=== PATIENT | female | born 1970 | race Caucasian/White ===

== ENCOUNTER 2024-02-10 14:06 | Emergency (ER) | payer BC, SELFPAY ==
[2024-02-10 14:08] VITALS: BP 136/70
--- NOTE | 2024-02-10 15:14 | ED.MUSCINJ ---
HPI-Injury
General
Chief Complaint: Musculo-Skeletal Complaint
Source: patient
Exam Limitations: none
Time Seen by Provider: 02/10/24 15:05
Travel History
Have you had any contact with someone who has COVID-19?: No
Do you have any symptoms of coronavirus? Fever > 100 degrees, chills, cough, shortness of breath, sore throat, loss of taste or smell, muscle aches, or headache?: No
History of Present Illness-Injury
Initial Injury comments:
53-year-old female presents complaining of right foot pain starting today. She was standing on a ladder supporting the ladder while her was a couple rungs above her cutting a small piece of a tree off. The limb that was cut off fell and
landed on her right foot. Since then she has had pain and swelling to the right foot increased with bearing weight. She also notes an abrasion to the left distal thigh.
Past History
Past History
ED Past Medical History: Asthma, GERD, Psychiatric and Other (IBS, anxiety)
ED Past Surgical History: Cholecystectomy
Social History
Tobacco: Non-smoker
Alcohol: None
Drug: None
Personal:
Living: with family
Employment: Employed
Family History
Family History: Other (GERD)
Phy Exam
Physical Exam
Physical Exam:
General: Well-appearing female no acute respiratory distress
Musculoskeletal exam: Right foot swollen ecchymotic tender over the dorsal midfoot. No significant deformity. Lateral ankle slightly tender as well. She is able to resist eversion and inversion. She is able to dorsiflex the foot. She is tender
over the tarsometatarsal joint.
Skin is intact other than an abrasion to the left thigh
Vascular: Dorsalis pedis pulse right foot with capillary refill to the toes
Neurologic: Good sensation right foot
Injury Course
Orders/Labs/Results
Orders:
Orders
02/10/24 14:09
Foot, Right 3 View [CR Foot - Right Min 3 Views] Urgent
Comment:
Reason For Exam: tree fall on foot
02/10/24 14:10
Ankle, Right 3 view CR [CR Ankle - Right Min 3 Views *] Urgent
Comment:
Reason For Exam: tree limb fell on foot
MDM/Problems Addressed
Differential Diagnosis Includes:
Right foot pain after a tree log falling on it. Consider sprain versus versus dislocation versus Lisfranc injury given the location and mechanism. X-rays were carefully reviewed and are negative for acute bony abnormality. Suspect contusion and
perhaps underlying sprain. Will place in boot and have patient follow-up with orthopedics. Stable for discharge
*Critical Care Note
Total Time (30-74mins, 75-104mins- exclusive of procedures): Not Applicable
ED Attending Note
-
Portions of this chart may have been created with voice recognition software.� Occasional wrong word or��sound alike� substitutions may have occurred due to the inherent limitations of voice recognition software.
Discharge Plan
Departure
Patient Disposition: Home (Routine Discharge)
Date of Disposition: 02/10/24
Time of Disposition: 15:27
Patient with high blood pressure during this ER visit?: No
Discharge Problem:
Foot sprain
Instructions: Muscle and Bone Pain (DC)
Prescriptions:
No Action
fluticasone propionate 1 SPRAY spray,suspension
1 spray intranasal DAILY
polyethylene glycol 3350 17 GRAMS powder in packet
17 grams PO DAILY
cetirizine 10 MG tablet
10 mg PO HSPRN PRN (Reason: allergies)
calcium carbonate [Antacid (calcium carbonate)] 1 TABLET tablet,chewable
500 mg PO Q4HPRN PRN (Reason: heartburn)
simethicone [Gas Relief Extra Strength] 125 MG tablet,chewable
125 mg PO Q4HPRN PRN (Reason: gas)
clonazepam 0.25 MG tablet,disintegrating
0.5 mg PO HSPRN PRN (Reason: anxiety)
albuterol sulfate 1 PUFF HFA aerosol inhaler
1 puff inhalation R Q4HPRN PRN (Reason: asthma)
ut-hms-yyyhj acid-lutein 1 EACH tablet,chewable
1 tab PO DAILY
omeprazole 40 MG capsule,delayed release(DR/EC)
40 mg PO DAILY Qty: 30 0RF
Rx Instructions:
for one month only
venlafaxine [Effexor] 75 MG tablet
75 mg PO DAILY
norethindrone-e.estradiol-iron [Lo Loestrin Fe] 1 EACH tablet
1 ea PO DAILY
diazepam [Valium] 5 MG tablet
2.5 mg PO BID
yolprmulmg-hyhbkjzvorazw-wpgg [Fioricet] 1 EACH capsule
1 ea PO BID
Referrals:
Abhishek Barrios MD [Active] -
Activity Restrictions/Additional Instructions:
Use boot for support. Elevate for swelling. Use ibuprofen and Tylenol for pain. Follow-up with orthopedics for further evaluation
Interventions
Interventions:
ED-Musculoskeletal Assessment Last Done: 02/10/24 15:06
Discharge Date and Time
Print Language: LEBANESE
== END 2024-02-10 16:08 | disposition home or self-care (01) ==
LOC: EMR 14:06
PROVIDERS: EMERGENCY PHYSICIAN Emergency Medicine; FAMILY PHYSICIAN Physician Assistant Medical
DX: S93.601A Unspecified sprain of right foot, initial encounter (principal); W20.8XXA Other cause of strike by thrown, projected or falling object, initial encounter; J45.909 Unspecified asthma, uncomplicated; F41.9 Anxiety disorder, unspecified; K21.9 Gastro-esophageal reflux disease without esophagitis; K58.9 Irritable bowel syndrome, unspecified; Z83.79 Family history of other diseases of the digestive system; Z90.49 Acquired absence of other specified parts of digestive tract
CPT/HCPCS: 99283; 73610; 73630

== ENCOUNTER → 2024-07-18 13:27 | Outpatient (REF) | payer BC, SELFPAY | LOC: HWWDC 13:27 | PROVIDERS: ATTENDING PHYSICIAN Obstetrics & Gynecology; FAMILY PHYSICIAN Physician Assistant Medical | DX: Z12.31 Encounter for screening mammogram for malignant neoplasm of breast (principal) | CPT/HCPCS: 77063; 77067 ==

== ENCOUNTER → 2024-08-01 08:25 | Outpatient (REF) | payer BC, SELFPAY | LOC: WDC 08:25 | PROVIDERS: ATTENDING PHYSICIAN Obstetrics & Gynecology; FAMILY PHYSICIAN Physician Assistant Medical | DX: R92.8 Other abnormal and inconclusive findings on diagnostic imaging of breast (principal) | CPT/HCPCS: 76642 ==